=== PATIENT | male | born 1970 | race African-American/Black ===

== ENCOUNTER 2022-02-10 11:57 | Emergency (ER) | payer OTHER ==
[~2022-02-10] VITALS: Ht 182.9 cm; Wt 102.0 kg
[2022-02-10] MEDS ORDERED: KETOROLAC 15MG/ML VIAL IV ONE (12:45)
[2022-02-10] MEDS ORDERED: ACETAMINOPHEN 325MG TABLET PO ONE (12:45)
[2022-02-10] MEDS ORDERED: CYCLOBENZAPRINE 10MG TABLET PO ONE (12:45)
[2022-02-10 13:40] LABS: BASOPHILS % 0.7 % (0.0-2.0); EOSINOPHILS % 2.3 % (0.0-5.0); HEMATOCRIT. 37.1 % (42.0-52.0); HEMOGLOBIN. 12.1 g/dL (14.0-18.0); MEAN CORPUSCULAR VOLUME 80.1 fL (80.0-94.0); MEAN PLATELET VOLUME 9.7 fl (7.4-10.4); MONOCYTES % 7.5 % (2.0-8.0); NEUTROPHILS % 47.5 % (40.0-76.0); PLATELET 194 x1000/uL (130-400); RED BLOOD CELL COUNT 4.63 mill/uL (4.7-6.1); RED CELL DISTRIBUTION WIDTH 14.3 % (11.6-14.6)
[2022-02-10 13:58] LABS: CHLORIDE 108 mEq/L (98-107)
[2022-02-10] MEDS ORDERED: IBUP-2028 MT (15:51)
[2022-02-10] MEDS ORDERED: METH-653 MT (15:51)
[2022-02-10 15:55] VITALS: BP 165/100
== END 2022-02-10 16:02 | disposition home or self-care (01) ==
LOC: ER 12:15
DX: R51.9 Headache, unspecified (principal); M79.602 Pain in left arm; R07.81 Pleurodynia; I31.39 Other pericardial effusion (noninflammatory); E11.9 Type 2 diabetes mellitus without complications; I10 Essential (primary) hypertension; V43.02XA Car driver injured in collision with other type car in nontraffic accident, initial encounter; Y93.89 Activity, other specified; Y92.410 Unspecified street and highway as the place of occurrence of the external cause
CPT/HCPCS: 36415; 70450; 71045; 73030; 73060; 73070; 73090; 73130; 76705; 80053; 85025; 93880; 96374; 99285; J1885; A4565